=== PATIENT | female | born 1990 | race African-American/Black ===

== ENCOUNTER 2016-09-25 19:21 | Emergency (ER) | payer OTHER ==
[~2016-09-25] VITALS: Ht 165.1 cm; Wt 50.0 kg
[2016-09-25] MEDS ORDERED: IBUPROFEN 800MG TABLET PO ONE (20:45)
[2016-09-25 21:45] VITALS: BP 120/78
== END 2016-09-25 21:45 | disposition home or self-care (01) ==
LOC: ER 20:38
DX: R07.9 Chest pain, unspecified (principal); M25.512 Pain in left shoulder; R20.0 Anesthesia of skin
CPT/HCPCS: 93005; 99283